=== PATIENT | female | born 1950 | race Caucasian/White ===

== ENCOUNTER 2016-06-25 16:06 | Emergency (ER) | payer MEDICARE, OTHER ==
[~2016-06-25] VITALS: Ht 167.6 cm; Wt 130.0 kg
[~2016-06-25 16:06] MED LIST: DIAZ5 PO; DYAZ37.52 PO; GLIM1 PO; LIPI40TA PO; LISI10TA PO; MECL25 PO; METF-324 PO; PROM25SU8 PO; ROSI1TAB24 PO
[2016-06-25 16:10] VITALS: PULSE 77; RESP 18; TEMP 98; O2SAT 96
[2016-06-25 16:25] VITALS: BP 144/52
[2016-06-25] MEDS ORDERED: NOVOLOGMXP SQ (16:28)
[2016-06-25] MEDS ORDERED: LISI2.5T3 PO (16:28)
[2016-06-25] MEDS ORDERED: METF1000 PO (16:28)
[2016-06-25] MEDS ORDERED: AMLO2.5T PO (16:28)
[2016-06-25] MEDS ORDERED: GABA300C5 PO (16:28)
[2016-06-25] MEDS ORDERED: SODIUM CHLOR 0.9% 1000 ML INJ 1,000 ML IV SCH (17:29)
[2016-06-25] MEDS ORDERED: ONDANSETRON HCL 4 MG/2 ML VIAL IVP ONE (17:30)
[2016-06-25] MEDS ORDERED: MORPHINE SULFATE 4 MG/ML INJ IV PUSH ONE (17:30)
--- NOTE | 2016-06-25 17:37 | PD ---
HPI Chief Complaint: Pain: Acute or Chronic Time Seen by Provider: 17:31 Travel History International Travel<30 days: No Contact w/Intl Traveler<30days: No Traveled to known affect area: No History of Present Illness HPI Patient is a 66-year-old diabetic female with chief complaint of right rib pain. She states 6 days ago she tripped and fell in the dark at her daughter's house and hit the right anterior ribs on a countertop. She has had pain since. She is use ibuprofen and Tylenol only briefly. Pain has not improved. She denies any central chest pain, shortness of breath, cough or fever. He feels like the right upper quadrant of her abdomen hurts somewhat to him it is distended and she feels bloated. She denies any allergies to her urine, dysuria , hematuria, change in bowel habits. She did not hit her head or lose consciousness. She denies any back pain. Additionally patient states that her right wrist has bothered her for 7 months after a fall she's had edema in the wrist since that time. She went to another ED and x-ray was done which she was never told the results and has not followed up. She requests this be x-rayed. Denies any acute worsening. PFSH Past Medical History Hx Anticoagulant Therapy: No Arthritis: Yes Cardiovascular Problems: Yes (HTN, CHOL) High Cholesterol: Yes Diabetes: Yes Patient Takes Glucophage: Yes Hypertension: Yes Respiratory: Yes (COPD) Tetanus Vaccination: < 5 Years Influenza Vaccination: No ?: Not Menopausal: Yes Past Surgical History Joint Replacement: No Social History Alcohol Use: No Tobacco Use: No Substance Use: No Allergies-Medications (Allergen,Severity, Reaction): Coded Allergies: Benadryl (Verified Allergy, Severe, PALPITATIONS, 06/25/16) Latex (Verified Allergy, Severe, PALPITATIONS,SKIN WEEPING,SUN BURNED, ) Reported Meds & Prescriptions Reported Meds & Active Scripts Active Lortab (Hydrocodone-Acetaminophen) 7.5-325 Mg Tab 1 Tab PO Q6H PRN Nystatin Topical (Nystatin) 100,000 unit/gm Cream 1 Applic TOPICAL BID 10 Days Diflucan (Fluconazole) 150 Mg Tab 150 Mg PO ONCE Reported Amlodipine (Amlodipine Besylate) 2.5 Mg Tab 2.5 Mg PO DAILY Gabapentin 300 Mg Cap 300 Mg PO BID Novolog Mix 70-30 Inj (Insulin Aspart Prota 70%/Aspart 30%) 1,000 Unit/10 Ml Vial 44 Units SQ BID Metformin (Metformin HCl) 1,000 Mg Tab 1,000 Mg PO BIDPC With meals Lisinopril 2.5 Mg Tab 2.5 Mg PO DAILY Review of Systems Except as stated in HPI: all other systems reviewed are Neg Physical Exam Narrative GENERAL: Well-developed and well-nourished adult female in no acute distress. SKIN: Bilateral intertrigo candidiasis of the breast. Warm and dry. Good turgor without tenting. HEAD: Normocephalic and atraumatic. EYES: PERRL bilaterally, 5mm. EOMI bilaterally. No injection or icterus present. No proptosis. Lids without edema or erythema. NECK: Supple, no midline tenderness, crepitus or step-offs. Trachea midline, no JVD. No cervical or facial lymphadenopathy. CARDIOVASCULAR: Regular rate and rhythm without murmurs, rubs, clicks or gallops. Radial and posterior tibial pulses 2+ bilaterally. Trace bilateral pedal edema, chronic per patient. Negative bilateral Homans sign. RESPIRATORY: Clear to auscultation bilaterally with symmetrical rise and fall, no distress or use of accessory muscles. Speaks in Full sentences. GASTROINTESTINAL: Tenderness in the right upper quadrant without rebounding or guarding. Does appear to be distended without discoloration. Resonant to percussion diffusely. No fluid wave. Normal bowel sounds all 4 quadrants. No masses or organomegaly present. MUSCULOSKELETAL: Mild ecchymosis and moderate tenderness to palpation of the right anterior lateral ribs in the midclavicular line to the mid axillary line without crepitus or step-offs. No pain with palpation of bilateral ASIS or pelvic instability. No lumbar sacral midline tenderness, crepitus or step- offs. Dorsum of the right wrist has some edema without ecchymosis or warmth. Has normal range of motion in the wrist does have some tenderness over the dorsum of the wrist, no scaphoid tenderness. Normal range of motion in all 5 fingers right hand. NEUROLOGIC: CN II-XII grossly intact. Awake and alert. Motor grossly within normal limits. Normal speech. PSYCHIATRIC: Appropriate mood and affect; insight and judgment normal. *Patient was examined in the presence of a nurse, Liss, at all times* Data Data Last Documented VS Vital Signs Date Time Temp Pulse Resp B/P Pulse Ox O2 Delivery O2 Flow Rate FiO2 06/25/16 19:17 70 18 151/69 95 Room Air 06/25/16 16:10 98.0 Orders Ribs, Uni (W/Exp Cxr-Min 3vw) (06/25/16 ) Complete Blood Count With Diff (06/25/16 17:29) Comprehensive Metabolic Panel (06/25/16 17:29) Prothrombin Time / Inr (Pt) (06/25/16 17:29) Act Partial Throm Time (Ptt) (06/25/16 17:29) Urinalysis - C+S If Indicated (06/25/16 17:29) Abdomen, Flat & Upright (06/25/16 ) Ct Abd/Pel W Iv Contrast(Rout) (06/25/16 17:29) Iv Access Insert/Monitor (06/25/16 17:29) Ecg Monitoring (06/25/16 17:29) Oximetry (06/25/16 17:29) NPO (06/25/16 17:29) Morphine Inj (Morphine Inj) (06/25/16 17:30) Ondansetron Inj (Zofran Inj) (06/25/16 17:30) Sodium Chlor 0.9% 1000 Ml Inj (Ns 1000 M (06/25/16 17:29) Wrist, Complete ([id number]) (06/25/16 ) Resp Incentive Spirometry (06/25/16 ) Iohexol 350 Inj (Omnipaque 350 Inj) (06/25/16 20:55) Labs Laboratory Tests Test 06/25/16 06/25/16 17:40 18:15 Urine Collection Type VOIDED Urine Color STRAW Urine Turbidity CLEAR Urine pH 7.0 Urine Specific [place] 1.020 Urine Protein NEG mg/dL Urine Glucose (UA) NEG mg/dL Urine Ketones NEG mg/dL Urine Occult Blood NEG Urine Nitrite NEG Urine Bilirubin NEG Urine Leukocyte Esterase NEG Urine WBC 6-8 /hpf Urine Squamous Epithelial >8 /hpf Cells Urine Bacteria FEW /hpf Microscopic Urinalysis Comment CULT NOT INDICATED White Blood Count 7.9 TH/MM3 Red Blood Count 4.28 MIL/MM3 Hemoglobin 12.3 GM/DL Hematocrit 36.9 % Mean Corpuscular Volume 86.2 FL Mean Corpuscular Hemoglobin 28.8 PG Mean Corpuscular Hemoglobin 33.4 % Concent Red Cell Distribution Width 13.1 % Platelet Count 250 TH/MM3 Mean Platelet Volume 8.1 FL Neutrophils (%) (Auto) 47.2 % Lymphocytes (%) (Auto) 41.4 % Monocytes (%) (Auto) 8.0 % Eosinophils (%) (Auto) 2.5 % Basophils (%) (Auto) 0.9 % Neutrophils # (Auto) 3.7 TH/MM3 Lymphocytes # (Auto) 3.3 TH/MM3 Monocytes # (Auto) 0.6 TH/MM3 Eosinophils # (Auto) 0.2 TH/MM3 Basophils # (Auto) 0.1 TH/MM3 CBC Comment DIFF FINAL Differential Comment Prothrombin Time 10.1 SEC Prothromb Time International 0.9 RATIO Ratio Activated Partial 24.7 SEC Thromboplast Time Sodium Level 143 MEQ/L Potassium Level 4.1 MEQ/L Chloride Level 109 MEQ/L Carbon Dioxide Level 27.7 MEQ/L Anion Gap 6 MEQ/L Blood Urea Nitrogen 18 MG/DL Creatinine 0.64 MG/DL Estimat Glomerular Filtration 93 ML/MIN Rate Random Glucose 79 MG/DL Calcium Level 8.7 MG/DL Total Bilirubin 0.5 MG/DL Aspartate Amino Transf 11 U/L (AST/SGOT) Alanine Aminotransferase 22 U/L (ALT/SGPT) Alkaline Phosphatase 76 U/L Total Protein 7.1 GM/DL Albumin 3.2 GM/DL MDM Medical Decision Making Medical Screen Exam Complete: Yes Emergency Medical Condition: Yes Interpretation(s) Laboratory Tests Test 06/25/16 06/25/16 17:40 18:15 Urine Collection Type VOIDED Urine Color STRAW (YELLW/STRAW) Urine Turbidity CLEAR (CLEAR) Urine pH 7.0 (5.0-8.5) Urine Specific [place] 1.020 (1.002-1.035) Urine Protein NEG mg/dL (NEG-TRACE) Urine Glucose (UA) NEG mg/dL (NEG) Urine Ketones NEG mg/dL (NEG) Urine Occult Blood NEG (NEG) Urine Nitrite NEG (NEG) Urine Bilirubin NEG (NEG) Urine Leukocyte Esterase NEG (NEG) Urine WBC 6-8 /hpf (0-5) Urine Squamous Epithelial >8 /hpf (0-5) Cells Urine Bacteria FEW /hpf (NONE) Microscopic Urinalysis Comment CULT NOT INDICATED White Blood Count 7.9 TH/MM3 (4.0-11.0) Red Blood Count 4.28 MIL/MM3 (4.00-5.30) Hemoglobin 12.3 GM/DL (11.6-15.3) Hematocrit 36.9 % (35.0-46.0) Mean Corpuscular Volume 86.2 FL (80.0-100.0) Mean Corpuscular Hemoglobin 28.8 PG (27.0-34.0) Mean Corpuscular Hemoglobin 33.4 % Concent (32.0-36.0) Red Cell Distribution Width 13.1 % (11.6-17.2) Platelet Count 250 TH/MM3 (150-450) Mean Platelet Volume 8.1 FL (7.0-11.0) Neutrophils (%) (Auto) 47.2 % (16.0-70.0) Lymphocytes (%) (Auto) 41.4 % (9.0-44.0) Monocytes (%) (Auto) 8.0 % (0.0-8.0) Eosinophils (%) (Auto) 2.5 % (0.0-4.0) Basophils (%) (Auto) 0.9 % (0.0-2.0) Neutrophils # (Auto) 3.7 TH/MM3 (1.8-7.7) Lymphocytes # (Auto) 3.3 TH/MM3 (1.0-4.8) Monocytes # (Auto) 0.6 TH/MM3 (0-0.9) Eosinophils # (Auto) 0.2 TH/MM3 (0-0.4) Basophils # (Auto) 0.1 TH/MM3 (0-0.2) CBC Comment DIFF FINAL Differential Comment Prothrombin Time 10.1 SEC (9.8-11.6) Prothromb Time International 0.9 RATIO Ratio Activated Partial 24.7 SEC Thromboplast Time (24.3-30.1) Sodium Level 143 MEQ/L (136-145) Potassium Level 4.1 MEQ/L (3.5-5.1) Chloride Level 109 MEQ/L (98-107) Carbon Dioxide Level 27.7 MEQ/L (21.0-32.0) Anion Gap 6 MEQ/L (5-15) Blood Urea Nitrogen 18 MG/DL (7-18) Creatinine 0.64 MG/DL (0.50-1.00) Estimat Glomerular Filtration 93 ML/MIN (>89) Rate Random Glucose 79 MG/DL (74-106) Calcium Level 8.7 MG/DL (8.5-10.1) Total Bilirubin 0.5 MG/DL (0.2-1.0) Aspartate Amino Transf 11 U/L (15-37) (AST/SGOT) Alanine Aminotransferase 22 U/L (10-53) (ALT/SGPT) Alkaline Phosphatase 76 U/L (45-117) Total Protein 7.1 GM/DL (6.4-8.2) Albumin 3.2 GM/DL (3.4-5.0) Last 24 hours Impressions Wrist X-Ray 06/25/16 0000 Signed Impressions: Service Date/Time: Saturday, June 25, 2016 18:07 - CONCLUSION: No acute abnormality is seen. Kane Blank MD Ribs X-Ray 06/25/16 0000 Signed Impressions: Service Date/Time: Saturday, June 25, 2016 17:50 - CONCLUSION: Negative left rib series. Kane Blank MD Abdomen X-Ray 06/25/16 0000 Signed Impressions: Service Date/Time: Saturday, June 25, 2016 17:59 - CONCLUSION: Suspected gallstones. Kane Blank MD Differential Diagnosis Rib contusion versus rib fracture versus pneumothorax versus intra-abdominal organ injury Narrative Course Patient is a 66-year-old female presenting with right lower rib and right upper quadrant abdominal pain for 5 days. She tripped and fell into a countertop. Oxygen saturation on room air is normal and patient has no increased work of breathing. No loss of breath sounds are signs of consolidation or effusion. She does have some report of right upper quadrant discomfort and distention of the abdomen. She is not tachycardic however diastolic blood pressure is 52. Patient was given morphine, Zofran and 1 L normal saline bolus and ordered CT abdomen and pelvis with contrast, right rib series x-ray and labs. Patient has chronic issue of the right wrist and asked me to add on x-ray for this as well. She does have some edema but no point tenderness, that this may represent a ganglion cyst. X-ray showed some degenerative changes distally which could represent an old fracture. Patient was recommended follow-up with hand specialist or orthopedist regarding this. X-ray of the pelvis showed gallstones. I discussed with the patient who states that she told she has gallstones but has always been asymptomatic. She denies any food intolerances, nausea and early satiety. Urinalysis shows 60 WBCs with few bacteria. Patient denied dysuria. CBC unremarkable. Metabolic panel shows chloride 109. AST 11 , ALT 122, ALP 76. ALP 3.2. Somehow the left ribs series was performed. There was no pneumothorax seen in the right ribs were fairly well imaged. I do not see any fracture. medication technician was able to include up to ribs 8 on the right which is adequate, CT shows a buckle-type rib fracture at rib #7. Fatty liver and cholelithiasis without signs of cholecystitis. As patient was reexamined and has no Bradley sign has no other symptoms of cholecystitis or other gallbladder disease no additional imaging is warranted at this time. I did discuss Dr. Roberts who agrees. Patient was given Percocet for pain control as well as incentive spirometer.See discharge paperwork for further instructions. The plan was discussed with the patient who acknowledged their understanding and agreement. Reinforced the follow-up with primary care is critically important. Patient instructed on emergent conditions that should prompt return to ED. Diagnosis Primary Impression: Rib fracture Qualified Code: S22.31XA - Closed fracture of one rib of right side, initial encounter Additional Impressions: Candidal intertrigo Cholelithiasis Qualified Code: K80.20 - Calculus of gallbladder without cholecystitis without obstruction Chronic wrist pain Qualified Code: M25.531 - Chronic wrist pain, right Patient Instructions: General Instructions, Rib Fracture (ED), Skin Yeast Infection (ED) Additional Instructions: Take medications as prescribed Your medications may cause drowsiness. Do not take with alcohol or sedatives. Do not operate a motor vehicle or heavy machinery while on medication. Apply warm, moist heat to painful ribs every 1 to 2 hours as needed Avoid maneuvers that aggravate pain Important to take 10 full, deep breaths in and out every 30 minutes until pain resolves to avoid complications including pneumonia Rib injuries may take 4-6 few weeks until completely resolved Follow-up with PCP in 2-3 days regarding the rib pain and chronic gallstones Recommend follow-up with orthopedist regarding the chronic wrist pain Return to the ED for any acute worsening of symptoms including worsening pain, fever, chills, cough, sputum production, shortness of breath Med/Other Pt SpecificInfo: Prescription(s) given Scripts Hydrocodone-Acetaminophen (Lortab)7.5-325 Mg Tab1 Tab PO Q6H PRN (PAIN) #20 TAB Ref 0 Prov:Hakan Salmeron MD 06/25/16 Nystatin Topical 100,000 unit/gm Cream1 Applic TOPICAL BID 10 Days Ref 0 Prov:Fiona Cooley MD 06/25/16 Fluconazole (Diflucan)150 Mg [id number] Mg PO ONCE #1 TAB Ref 0 Prov:Fiona Cooley MD 06/25/16 Disposition: 01 DISCHARGE HOME Condition: Stable Kane Massey III Jun 25, 2016 17:37
[2016-06-25] MEDS ORDERED: NYST15T TOPICAL (17:38)
[2016-06-25] MEDS ORDERED: DIFL150T PO (17:38)
[2016-06-25 17:54] LABS: BLOOD, URINE NEG (NEG); GLUCOSE,URINE NEG (NEG); KETONE, URINE NEG (NEG); NITRITE,URINE NEG (NEG)
[2016-06-25 18:28] LABS: METHOD OF COLLECTION VOIDED; SQUAMOUS EPITHELIAL CELL URINE >8 /hpf (0-5); URINE COLOR STRAW (YELLW/STRAW)
[2016-06-25 18:29] LABS: BACTERIA, URINE FEW /hpf; COMMENT (UR) CULT NOT INDICATED; CULTURE IF INDICATED CULT NOT INDICATED
[2016-06-25 18:30] VITALS: BP 159/63; PULSE 68; RESP 18; O2SAT 97
--- NOTE | 2016-06-25 18:30 | RADHPO ---
EXAM DATE/TIME: 06/25/2016 17:50 [facility] COMPARISON: No previous studies available for comparison. INDICATIONS : Left anterior, inferior rib pain after fall. MEDICAL HISTORY : Hypertension. Hypercholesterolemia. Chronic obstructive pulmonary disease. Diabetes, Arthritis SURGICAL HISTORY : Total knee replacement, right. ENCOUNTER: Initial ACUITY: 4 - 6 days PAIN SCORE: 9/10 LOCATION: Left chest FINDINGS: Multiple views of the left ribs were performed. There is no evidence of displaced fracture. No dest ructive lesions or areas of periosteal thickening are seen. Expiratory view of the chest is negative for pneumothorax. The mediastinal structures are midline. There is degenerative change of the musa ohumeral joints. Spurs are seen in the thoracic spine. CONCLUSION: Negative left rib series. Kane Blank MD on June 25, 2016 at 18:27 Board Certified Radiologist. This report was verified electronically.
[2016-06-25 18:36] LABS: AUTOMATED NEUTROPHIL # 3.7 TH/MM3 (1.8-7.7); BASOPHIL # 0.1 TH/MM3 (0-0.2); BASOPHIL % 0.9 % (0.0-2.0); EOSINOPHIL # 0.2 TH/MM3 (0-0.4); EOSINOPHIL % 2.5 % (0.0-4.0); HEMATOCRIT 36.9 % (35.0-46.0); HEMO FLAGS DIFF FINAL; LYMPH % 41.4 % (9.0-44.0); LYMPHOCYTE # 3.3 TH/MM3 (1.0-4.8); MEAN CELL VOLUME 86.2 FL (80.0-100.0); MEAN CORPUSCULAR HEMOGLOBIN 28.8 PG (27.0-34.0); MEAN CORPUSCULAR HGB CONC 33.4 % (32.0-36.0); NEUT % 47.2 % (16.0-70.0); PLATELET COUNT 250 TH/MM3 (150-450); RED BLOOD COUNT 4.28 MIL/MM3 (4.00-5.30); RED CELL DISTRIBUTION WIDTH 13.1 % (11.6-17.2); WHITE BLOOD COUNT 7.9 TH/MM3 (4.0-11.0)
--- NOTE | 2016-06-25 18:36 | RADHPO ---
EXAM DATE/TIME: 06/25/2016 17:59 [facility] COMPARISON: No previous studies available for comparison. INDICATIONS : Right upper quadrant abdominal pain after fall. MEDICAL HISTORY : Hypertension. Hypercholesterolemia. Chronic obstructive pulmonary disease. Diabetes, Arthritis SURGICAL HISTORY : Total knee replacement, right. ENCOUNTER: Initial ACUITY: 4 - 6 days PAIN SCORE: 10/10 LOCATION: Right upper quadrant abdomen FINDINGS: There are oval calcifications in the right upper quadrant likely related to gallstones given their size and location. Air is seen within nondistended segments of bowel. Spurs are seen in the lumbar spine. CONCLUSION: Suspected gallstones. Kane Blank MD on June 25, 2016 at 18:29 Board Certified Radiologist. This report was verified electronically.
--- NOTE | 2016-06-25 18:43 | RADHPO ---
EXAM DATE/TIME: 06/25/2016 18:07 [facility] COMPARISON: No previous studies available for comparison. INDICATIONS : Entire right wrist pain after fall. MEDICAL HISTORY : Hypertension. Hypercholesterolemia. Chronic obstructive pulmonary disease. Diabetes, Arthritis SURGICAL HISTORY : Total knee replacement, right. ENCOUNTER: Initial ACUITY: 4 - 6 days PAIN SCORE: 8/10 LOCATION: Right upper extremity FINDINGS: No fracture is seen. The wrist is normally aligned. There is some hypertrophic change at the distal radius and distal ulna. CONCLUSION: No acute abnormality is seen. Kane Blank MD on June 25, 2016 at 18:29 Board Certified Radiologist. This report was verified electronically.
[2016-06-25 18:54] LABS: CHLORIDE 109 MEQ/L (98-107); POTASSIUM 4.1 MEQ/L (3.5-5.1); SODIUM (NA) 143 MEQ/L (136-145)
[2016-06-25 19:00] LABS: ANION GAP 6 MEQ/L (5-15); APTT (PATIENT) 24.7 SEC (24.3-30.1); BICARBONATE 27.7 MEQ/L (21.0-32.0); BLOOD UREA NITROGEN 18 MG/DL (7-18); INTERNATIONAL NORMALIZED RATIO 0.9 RATIO; PROTHROMBIN TIME - PATIENT 10.1 SEC (9.8-11.6)
[2016-06-25 19:03] LABS: ALT (GPT) 22 U/L (10-53); AST (GOT) 11 U/L (15-37); GLOMERULAR FILTRATION RATE 93 ML/MIN (>89)
[2016-06-25 19:05] LABS: TOTAL BILIRUBIN ADULT 0.5 MG/DL (0.2-1.0)
[2016-06-25 19:06] LABS: ALKALINE PHOSPHATASE 76 U/L (45-117)
[2016-06-25 19:17] VITALS: BP 151/69; PULSE 70; RESP 18; O2SAT 95
--- NOTE | 2016-06-25 20:27 | RADHPO ---
EXAM DATE/TIME: 06/25/2016 19:28 [facility] COMPARISON: ABDOMEN FLAT & UPRIGHT, June 25, 2016, 17:59. INDICATIONS : Right lower rib pain following a fall five days ago. IV CONTRAST: 98 cc Omnipaque 350 (iohexol) IV ORAL CONTRAST: No oral contrast ingested. RADIATION DOSE: 22.4 CTDIvol (mGy) MEDICAL HISTORY : Hypertension. Diabetes. SURGICAL HISTORY : None. ENCOUNTER: Initial ACUITY: 4 - 6 days PAIN SCALE: 7/10 LOCATION: Right upper quadrant TECHNIQUE: Volumetric scanning of the abdomen and pelvis was performed. Using automated exposure control and adjustment of the mA and/or kV according to patient size, radiation dose was kept as low as reasonably achievable to obtain optimal diagnostic quality images. FINDINGS: There is diffuse decreased attenuation of the liver consistent with diffuse fatty infil tration. Two prominent gallstones are seen within the gallbladder. The spleen, pancreas, adrenal gla nds and kidneys appear unremarkable. Scattered atherosclerotic calcifications are seen at the arteria l system but no aneurysm is seen. The bowel is unremarkable. The pelvic structures appear grossly i ntact. There is minimal buckling of the anterior right seventh rib likely representing some minimal nondispl aced fracturing. The remaining bony structures appear grossly intact. There is degenerative change in the lumbar spine. There is some increased linear density seen at the bases likely representing so me atelectasis or scarring. CONCLUSION: 1. Suspected minimal cortical buckling consistent with minor fracturing at the right anterior seventh rib. 2. Fatty infiltration of the liver. 3. Gallstones. Kane Blank MD on June 25, 2016 at 19:57 Board Certified Radiologist. This report was verified electronically.
[2016-06-25] MEDS ORDERED: HYDR-3534 PO ×2 (20:35→21:03)
[2016-06-25] MEDS ORDERED: IOHEXOL 350 MG/ML 10 ML VIAL (for RAD DIAG) IV ONE (20:55)
[2016-06-25 21:35] VITALS: BP 165/74; PULSE 68; RESP 16; O2SAT 94
== END 2016-06-25 21:35 | disposition home or self-care (01) ==
LOC: PHEFT 16:06
DX: S22.31XA Fracture of one rib, right side, initial encounter for closed fracture (principal); K80.20 Calculus of gallbladder without cholecystitis without obstruction; M25.531 Pain in right wrist; I10 Essential (primary) hypertension; E78.00 Pure hypercholesterolemia, unspecified; E11.9 Type 2 diabetes mellitus without complications; J44.9 Chronic obstructive pulmonary disease, unspecified; W18.30XA Fall on same level, unspecified, initial encounter; Y99.8 Other external cause status
CPT/HCPCS: 71101; 73110; 74020; 74177; 80053; 81001; 85025; 85610; 85730; 94150; 96361; 96374; 96375; 99284; J2270; J2405; J7030; Q9967

== ENCOUNTER 2016-09-21 08:54 | Emergency (ER) | payer MEDICARE, OTHER ==
[~2016-09-21] VITALS: Ht 165.1 cm; Wt 120.0 kg
[~2016-09-21 08:54] MED LIST changes: +AMLO2.5T PO; -DIAZ5 PO; +DIFL150T PO; -DYAZ37.52 PO; +GABA300C5 PO; -GLIM1 PO; +HYDR-3534 PO; -LIPI40TA PO; -LISI10TA PO; +LISI2.5T3 PO; -MECL25 PO; -METF-324 PO; +METF1000 PO; +NOVOLOGMXP SQ; +NYST15T TOPICAL; -PROM25SU8 PO; -ROSI1TAB24 PO
[2016-09-21 08:56] VITALS: BP 154/75; PULSE 71; RESP 18; TEMP 97.2; O2SAT 96
[2016-09-21 09:15] LABS: BLOOD, URINE NEG (NEG); GLUCOSE,URINE NEG (NEG); KETONE, URINE TRACE mg/dL (NEG); NITRITE,URINE NEG (NEG)
[2016-09-21 09:19] LABS: METHOD OF COLLECTION CLEAN CATCH; URINE COLOR YELLOW (YELLW/STRAW)
[2016-09-21 09:20] LABS: BACTERIA, URINE OCC /hpf; SQUAMOUS EPITHELIAL CELL URINE > 8 /hpf (0-5)
[2016-09-21 09:21] LABS: COMMENT (UR) CULT NOT INDICATED; CULTURE IF INDICATED CULT NOT INDICATED
--- NOTE | 2016-09-21 09:34 | PD ---
HPI Chief Complaint: Abdominal Pain Time Seen by Provider: 09:21 Travel History International Travel<30 days: No Contact w/Intl Traveler<30days: No Traveled to known affect area: No History of Present Illness HPI This patient complains of pain in her right mid back. No specific injury. Duration 5 days. Severity is moderate. It waxes and wanes. No urinary complaints or fever. No vomiting. She has had some diarrhea without blood or mucus. PFSH Past Medical History Hx Anticoagulant Therapy: No Arthritis: Yes Cardiovascular Problems: Yes (HTN) High Cholesterol: Yes COPD: Yes Diabetes: Yes Patient Takes Glucophage: Yes Gastrointestinal Disorders: Yes (hx of gallstones) Hypertension: Yes Respiratory: Yes (COPD) Tetanus Vaccination: < 5 Years Influenza Vaccination: No ?: Not Menopausal: Yes Past Surgical History Joint Replacement: Yes (Rt. knee) Social History Alcohol Use: No Tobacco Use: No Substance Use: No Allergies-Medications (Allergen,Severity, Reaction): Coded Allergies: Benadryl (Verified Allergy, Severe, PALPITATIONS, 09/21/16) Latex (Verified Allergy, Severe, PALPITATIONS,SKIN WEEPING,SUN BURNED, 04/29) Reported Meds & Prescriptions Reported Meds & Active Scripts Active Lortab (Hydrocodone-Acetaminophen) 7.5-325 Mg Tab 1 Tab PO Q6H PRN Nystatin Topical (Nystatin) 100,000 unit/gm Cream 1 Applic TOPICAL BID 10 Days Diflucan (Fluconazole) 150 Mg Tab 150 Mg PO ONCE Reported Amlodipine (Amlodipine Besylate) 2.5 Mg Tab 2.5 Mg PO DAILY Gabapentin 300 Mg Cap 300 Mg PO BID Novolog Mix 70-30 Inj (Insulin Aspart Prota 70%/Aspart 30%) 1,000 Unit/10 Ml Vial 44 Units SQ BID Metformin (Metformin HCl) 1,000 Mg Tab 1,000 Mg PO BIDPC With meals Lisinopril 2.5 Mg Tab 2.5 Mg PO DAILY Review of Systems General / Constitutional: No: Fever Eyes: No: Visual changes HENT: No: Headaches Cardiovascular: No: Chest Pain or Discomfort Respiratory: No: Shortness of Breath Gastrointestinal: Positive: Diarrhea Genitourinary: No: Dysuria Musculoskeletal: Positive: Pain Skin: No Rash Neurologic: No: Weakness Psychiatric: No: Depression Endocrine: No: Polydipsia Hematologic/Lymphatic: No: Easy Bruising Physical Exam Narrative GENERAL: Well-nourished, well-developed patient in no apparent distress. SKIN: Focused skin assessment reveals no rash and nodules. Skin is Warm and dry. HEAD: Atraumatic. Normocephalic. EYES: Pupils equal and round. No scleral icterus. No injection or drainage. ENT: No nasal bleeding or discharge. Mucous membranes pink and moist. NECK: Trachea midline. No JVD. CARDIOVASCULAR: Regular rate and rhythm. No murmur appreciated. RESPIRATORY: No accessory muscle use. Clear to auscultation. Breath sounds equal bilaterally. GASTROINTESTINAL: Abdomen soft, non-tender, nondistended. Hepatic and splenic margins not palpable. MUSCULOSKELETAL: No obvious deformities. No clubbing. No cyanosis. No edema. NEUROLOGICAL: Awake and alert. No obvious cranial nerve deficits. Motor grossly within normal limits. Normal speech. PSYCHIATRIC: Appropriate mood and affect; insight and judgment normal. Data Data Last Documented VS Vital Signs Date Time Temp Pulse Resp B/P Pulse Ox O2 Delivery O2 Flow Rate FiO2 09/21/16 09:19 16 09/21/16 08:56 97.2 71 154/75 96 Orders Urinalysis - C+S If Indicated (09/21/16 09:04) Complete Blood Count With Diff (09/21/16 09:29) Comprehensive Metabolic Panel (09/21/16 09:29) Lipase (09/21/16 09:29) Labs Laboratory Tests Test 09/21/16 09/21/16 09:06 09:25 Urine Collection Type CLEAN CATCH Urine Color YELLOW Urine Turbidity CLEAR Urine pH 6.0 Urine Specific [place] 1.020 Urine Protein NEG mg/dL Urine Glucose (UA) NEG mg/dL Urine Ketones TRACE mg/dL Urine Occult Blood NEG Urine Nitrite NEG Urine Bilirubin NEG Urine Leukocyte Esterase TRACE Urine WBC 3-5 /hpf Urine Squamous Epithelial > 8 /hpf Cells Urine Bacteria OCC /hpf Microscopic Urinalysis Comment CULT NOT INDICATED Urine Collection Time 09:06 White Blood Count 7.5 TH/MM3 Red Blood Count 4.26 MIL/MM3 Hemoglobin 12.1 GM/DL Hematocrit 37.0 % Mean Corpuscular Volume 86.9 FL Mean Corpuscular Hemoglobin 28.4 PG Mean Corpuscular Hemoglobin 32.7 % Concent Red Cell Distribution Width 13.3 % Platelet Count 267 TH/MM3 Mean Platelet Volume 8.0 FL Neutrophils (%) (Auto) 53.6 % Lymphocytes (%) (Auto) 35.6 % Monocytes (%) (Auto) 6.6 % Eosinophils (%) (Auto) 3.3 % Basophils (%) (Auto) 0.9 % Neutrophils # (Auto) 4.0 TH/MM3 Lymphocytes # (Auto) 2.7 TH/MM3 Monocytes # (Auto) 0.5 TH/MM3 Eosinophils # (Auto) 0.2 TH/MM3 Basophils # (Auto) 0.1 TH/MM3 CBC Comment DIFF FINAL Differential Comment Sodium Level 143 MEQ/L Potassium Level 4.1 MEQ/L Chloride Level 108 MEQ/L Carbon Dioxide Level 27.6 MEQ/L Anion Gap 7 MEQ/L Blood Urea Nitrogen 15 MG/DL Creatinine 0.68 MG/DL Estimat Glomerular Filtration 87 ML/MIN Rate Random Glucose 145 MG/DL Calcium Level 8.9 MG/DL Total Bilirubin 0.4 MG/DL Aspartate Amino Transf 12 U/L (AST/SGOT) Alanine Aminotransferase 21 U/L (ALT/SGPT) Alkaline Phosphatase 76 U/L Total Protein 7.3 GM/DL Albumin 3.3 GM/DL Lipase 201 U/L [facility] Medical Decision Making Medical Screen Exam Complete: Yes Emergency Medical Condition: Yes Medical Record Reviewed: Yes Differential Diagnosis Lumbar strain, sciatica, pyelonephritis, biliary colic Narrative Course I have reviewed the patient's electronic medical record. Patient was here June 2016 for rib injury. She had up getting a CT scan which revealed cholelithiasis without signs of cholecystitis. Knowing she has gallstones she is worried that this could be a gallbladder problem. IV placed CBC is normal Metabolic profile is normal LFTs are normal Lipase is normal Urinalysis is normal Patient is clinically stable for outpatient follow-up. I think she most likely has musculoskeletal pain. I don't think she is having biliary colic Diagnosis Primary Impression: Back pain Qualified Code: M54.9 - Acute right-sided back pain, unspecified back location Additional Impression: Cholelithiasis Qualified Code: K80.20 - Calculus of gallbladder without cholecystitis without obstruction Additional Instructions: The patient was advised to follow up with their physician and return if they worsen. Med/Other Pt SpecificInfo: Other Disposition: 01 DISCHARGE HOME Condition: Stable Abilio Henriquez MD Sep 21, 2016 09:34
[2016-09-21 10:03] LABS: BASOPHIL # 0.1 TH/MM3 (0-0.2); BASOPHIL % 0.9 % (0.0-2.0); EOSINOPHIL # 0.2 TH/MM3 (0-0.4); EOSINOPHIL % 3.3 % (0.0-4.0); HEMO FLAGS DIFF FINAL; LYMPH % 35.6 % (9.0-44.0); LYMPHOCYTE # 2.7 TH/MM3 (1.0-4.8); MEAN CELL VOLUME 86.9 FL (80.0-100.0); MEAN CORPUSCULAR HEMOGLOBIN 28.4 PG (27.0-34.0); MEAN CORPUSCULAR HGB CONC 32.7 % (32.0-36.0); MONO % 6.6 % (0.0-8.0); NEUT % 53.6 % (16.0-70.0); PLATELET COUNT 267 TH/MM3 (150-450); RED BLOOD COUNT 4.26 MIL/MM3 (4.00-5.30); RED CELL DISTRIBUTION WIDTH 13.3 % (11.6-17.2); WHITE BLOOD COUNT 7.5 TH/MM3 (4.0-11.0)
[2016-09-21 10:04] LABS: CHLORIDE 108 MEQ/L (98-107); POTASSIUM 4.1 MEQ/L (3.5-5.1); SODIUM (NA) 143 MEQ/L (136-145)
[2016-09-21 10:08] LABS: ANION GAP 7 MEQ/L (5-15); BICARBONATE 27.6 MEQ/L (21.0-32.0); BLOOD UREA NITROGEN 15 MG/DL (7-18)
[2016-09-21 10:11] LABS: ALT (GPT) 21 U/L (10-53); AST (GOT) 12 U/L (15-37); GLOMERULAR FILTRATION RATE 87 ML/MIN (>89)
[2016-09-21 10:13] LABS: TOTAL BILIRUBIN ADULT 0.4 MG/DL (0.2-1.0)
[2016-09-21 10:14] LABS: ALKALINE PHOSPHATASE 76 U/L (45-117)
[2016-09-21 11:18] VITALS: BP 118/86
== END 2016-09-21 11:22 | disposition home or self-care (01) ==
LOC: PHED 08:54
DX: M54.9 Dorsalgia, unspecified (principal); K80.20 Calculus of gallbladder without cholecystitis without obstruction; I10 Essential (primary) hypertension; E78.00 Pure hypercholesterolemia, unspecified; E11.9 Type 2 diabetes mellitus without complications; Z79.84 Long term (current) use of oral hypoglycemic drugs; Z87.39 Personal history of other diseases of the musculoskeletal system and connective tissue; Z86.79 Personal history of other diseases of the circulatory system; Z87.09 Personal history of other diseases of the respiratory system; Z87.19 Personal history of other diseases of the digestive system
CPT/HCPCS: 80053; 81001; 83690; 85025; 99284

== ENCOUNTER 2017-03-30 15:40 | Emergency (ER) | payer MEDICARE, OTHER ==
[~2017-03-30] VITALS: Ht 172.7 cm; Wt 126.0 kg
[~2017-03-30 15:40] MED LIST changes: -DIFL150T PO; -HYDR-3534 PO; -NYST15T TOPICAL
[2017-03-30 15:53] VITALS: BP 161/71; PULSE 81; RESP 16; TEMP 98.9; O2SAT 97
[2017-03-30] MEDS ORDERED: FOLI400T PO (17:57)
[2017-03-30] MEDS ORDERED: GLIM2TAB PO (17:57)
[2017-03-30] MEDS ORDERED: EMPA1TAB PO (17:57)
[2017-03-30] MEDS ORDERED: RESP: ALBUTEROL 2.5 MG/IPRATROPIUM 0.5 MG NEB (SCH) INH ONE (18:00)
--- NOTE | 2017-03-30 18:02 | PD ---
HPI Chief Complaint: Edema Time Seen by Provider: 17:39 Travel History International Travel<30 days: No Contact w/Intl Traveler<30days: No Traveled to known affect area: No History of Present Illness HPI 66-year-old female complains of ankle swelling and shortness of breath. Patient states that the symptoms started about month ago. Patient states that she has history of COPD in the past. Patient's not on any inhaler. Patient is a nonsmoker. Patient denies any coughing congestion fever chills. Patient noticed increasing swelling of the ankles recently. Patient denies any injury. Patient denies any ankle pain. Patient denies any history of DVT or PE. Patient states that she has mild burning sensation substernally intermittently. Patient denies abdominal pain. Patient denies any nausea vomiting diarrhea. Patient has history hypertension, diabetes, hyperlipidemia. Patient denies family history of heart disease. Patient denies any history of recent long distance travel. PFSH Past Medical History Hx Anticoagulant Therapy: No Arthritis: Yes Cardiovascular Problems: Yes (htn on meds) High Cholesterol: Yes COPD: Yes Diabetes: Yes (type 2) Patient Takes Glucophage: Yes Endocrine: Yes Gastrointestinal Disorders: Yes (hx of gallstones) Hypertension: Yes Musculoskeletal: Yes Respiratory: Yes (copd) Influenza Vaccination: No ?: Not Menopausal: Yes Past Surgical History Joint Replacement: Yes (Rt. knee) Social History Alcohol Use: No Tobacco Use: No Substance Use: No Allergies-Medications (Allergen,Severity, Reaction): Coded Allergies: diphenhydramine (Unverified Allergy, Severe, PALPITATIONS, 03/30/17) latex (Unverified Allergy, Severe, PALPITATIONS,SKIN WEEPING,SUN BURNED, 03/30/17) Reported Meds & Prescriptions Reported Meds & Active Scripts Active Reported Folic Acid 0.4 Mg Tab 400 Mcg PO DAILY Glimepiride 2 Mg Tab 2 Mg PO BIDAC Jardiance (Empagliflozin) 10 Mg Tab 10 Mg PO DAILY Amlodipine (Amlodipine Besylate) 2.5 Mg Tab 2.5 Mg PO DAILY Gabapentin 300 Mg Cap 300 Mg PO BID Novolog Mix 70-30 Inj (Insulin Aspart Prota 70%/Aspart 30%) 1,000 Unit/10 Ml Vial 44 Units SQ BID Metformin (Metformin HCl) 1,000 Mg Tab 1,000 Mg PO BIDPC With meals Lisinopril 2.5 Mg Tab 2.5 Mg PO DAILY Review of Systems General / Constitutional: No: Fever Eyes: No: Visual changes HENT: No: Headaches Cardiovascular: No: Chest Pain or Discomfort Respiratory: Positive: Shortness of Breath Gastrointestinal: No: Abdominal Pain Genitourinary: No: Dysuria Musculoskeletal: Positive: Edema, No: Pain Skin: No Rash Neurologic: No: Weakness Psychiatric: No: Depression Endocrine: No: Polydipsia Hematologic/Lymphatic: No: Easy Bruising Physical Exam Narrative GENERAL: Well-nourished, well-developed patient. SKIN: Focused skin assessment warm/dry. HEAD: Normocephalic. EYES: No scleral icterus. No injection or drainage. NECK: Supple, trachea midline. No JVD or lymphadenopathy. CARDIOVASCULAR: Regular rate and rhythm without murmurs, gallops, or rubs. RESPIRATORY: Breath sounds equal bilaterally. No accessory muscle use. Mild expiratory wheezes bilaterally. No rhonchi. GASTROINTESTINAL: Abdomen soft, non-tender, nondistended. MUSCULOSKELETAL: +1 pitting edema lower extremity. Negative Homans sign. No redness no heat noted lower extremity. BACK: Nontender without obvious deformity. No CVA tenderness. Neurologic exam normal. Data Data Last Documented VS Vital Signs Date Time Temp Pulse Resp B/P (MAP) Pulse Ox O2 Delivery O2 Flow Rate FiO2 03/30/17 20:35 68 18 141/68 (92) 95 Room Air 03/30/17 15:53 98.9 Orders Orders Electrocardiogram (03/30/17 17:54) Complete Blood Count With Diff (03/30/17 17:54) Comprehensive Metabolic Panel (03/30/17 17:54) Creatine Kinase (Cpk) (03/30/17 17:54) Troponin I (03/30/17 17:54) B-Type Natriuretic Peptide (03/30/17 17:54) Prothrombin Time / Inr (Pt) (03/30/17 17:54) Act Partial Throm Time (Ptt) (03/30/17 17:54) Urinalysis - C+S If Indicated (03/30/17 17:54) D-Dimer (03/30/17 17:54) Thyroid Stimulating Hormone (03/30/17 17:54) Chest, Single Ap (03/30/17 17:54) Iv Access Insert/Monitor (03/30/17 17:54) Ecg Monitoring (03/30/17 17:54) Oximetry (03/30/17 17:54) Us Leg Venous Doppler Bilat (03/30/17 17:54) Albuterol-Ipratropium Neb (Duoneb Neb) (03/30/17 18:00) Ct Pulmonary Angiogram (03/30/17 20:19) Iohexol 350 Inj (Omnipaque 350 Inj) (03/30/17 21:50) Ed Discharge Order (03/30/17 22:26) Labs Laboratory Tests Test 03/30/17 18:00 03/30/17 18:08 Urine Color STRAW Urine Turbidity CLEAR Urine pH 6.0 Urine Specific [place] 1.030 Urine Protein NEG mg/dL Urine Glucose (UA) 1000 OR GREATER mg/dL Urine Ketones NEG mg/dL Urine Occult Blood NEG Urine Nitrite NEG Urine Bilirubin NEG Urine Leukocyte Esterase NEG Urine RBC 0-3 /hpf Urine WBC 0-2 /hpf Urine Squamous Epithelial Cells 0-5 /hpf Microscopic Urinalysis Comment CULT NOT INDICATED White Blood Count 6.6 TH/MM3 Red Blood Count 4.63 MIL/MM3 Hemoglobin 13.4 GM/DL Hematocrit 40.3 % Mean Corpuscular Volume 87.1 FL Mean Corpuscular Hemoglobin 29.0 PG Mean Corpuscular Hemoglobin Concent 33.3 % Red Cell Distribution Width 13.0 % Platelet Count 216 TH/MM3 Mean Platelet Volume 8.2 FL Neutrophils (%) (Auto) 52.3 % Lymphocytes (%) (Auto) 36.8 % Monocytes (%) (Auto) 7.6 % Eosinophils (%) (Auto) 2.4 % Basophils (%) (Auto) 0.9 % Neutrophils # (Auto) 3.4 TH/MM3 Lymphocytes # (Auto) 2.4 TH/MM3 Monocytes # (Auto) 0.5 TH/MM3 Eosinophils # (Auto) 0.2 TH/MM3 Basophils # (Auto) 0.1 TH/MM3 CBC Comment DIFF FINAL Differential Comment Prothrombin Time 10.1 SEC Prothromb Time International Ratio 0.9 RATIO Activated Partial Thromboplast Time 25.3 SEC D-Dimer Quantitative (PE/DVT) 0.55 MG/L FEU Blood Urea Nitrogen 12 MG/DL Creatinine 0.68 MG/DL Random Glucose 175 MG/DL Total Protein 6.7 GM/DL Albumin 3.1 GM/DL Calcium Level 8.3 MG/DL Aspartate Amino Transf (AST/SGOT) 15 U/L Alanine Aminotransferase (ALT/SGPT) 28 U/L Total Bilirubin 0.4 MG/DL Sodium Level 141 MEQ/L Potassium Level 4.0 MEQ/L Chloride Level 106 MEQ/L Carbon Dioxide Level 28.6 MEQ/L Anion Gap 6 MEQ/L Estimat Glomerular Filtration Rate 87 ML/MIN Total Creatine Kinase 50 U/L Troponin I LESS THAN 0.02 NG/ML B-Type Natriuretic Peptide 30 PG/ML Thyroid Stimulating Hormone 3rd Gen 0.959 uIU/ML MDM Medical Decision Making Medical Screen Exam Complete: Yes Emergency Medical Condition: Yes Interpretation(s) Last Impressions Lower Extremity Ultrasound 03/30/171753 Signed Impressions: Service Date/Time: March 00:03 - CONCLUSION: Normal examination. No evidence of DVT Ryan Munguia MD Chest X-Ray 03/30/171753 Signed Impressions: Service Date/Time: Thursday, March 30, 2017 18:08 - CONCLUSION: No acute disease. Ryan Munguia MD 2016 p.m. CBC within normal limit. CMP within normal limit. BNP 30. Cardiac enzymes are normal. UA is negative. D-dimer 0.55. Differential Diagnosis Differential diagnosis including acute exacerbation COPD, bronchitis, pneumonia , PE, pneumothorax, dependent edema, DVT. Narrative Course 66-year-old female complains of lower extremity swelling and shortness of breath. History of COPD. Diagnosis Primary Impression: Dependent edema Additional Impression: Reactive airway disease Qualified Codes: J45.40 - Moderate persistent asthma, uncomplicated Patient Instructions: General Instructions Additional Instructions: Albuterol inhaler as needed. Follow-up with local physician. Return if worse. Keep legs elevated. Decreased by mouth fluid intake. Med/Other Pt SpecificInfo: Prescription(s) given Scripts Albuterol 18 GM Inh (Ventolin Hfa 18 GM Inh) 90 Mcg/Act Aer 2 PUFF INH Q4-6H Y for SHORTNESS OF BREATH, #1 INHALER 0 Refills Prov: David Wong MD 03/30/17 Disposition: 01 DISCHARGE HOME Condition: Stable David Wong MD Mar 30, 2017 18:02
[2017-03-30 18:08] VITALS: O2SAT 95
[2017-03-30 18:17] LABS: AUTOMATED NEUTROPHIL # 3.4 TH/MM3 (1.8-7.7); BASOPHIL # 0.1 TH/MM3 (0-0.2); BASOPHIL % 0.9 % (0.0-2.0); EOSINOPHIL # 0.2 TH/MM3 (0-0.4); EOSINOPHIL % 2.4 % (0.0-4.0); HEMATOCRIT 40.3 % (35.0-46.0); HEMO FLAGS DIFF FINAL; LYMPH % 36.8 % (9.0-44.0); LYMPHOCYTE # 2.4 TH/MM3 (1.0-4.8); MEAN CELL VOLUME 87.1 FL (80.0-100.0); MEAN CORPUSCULAR HGB CONC 33.3 % (32.0-36.0); MONO % 7.6 % (0.0-8.0); NEUT % 52.3 % (16.0-70.0); PLATELET COUNT 216 TH/MM3 (150-450); RED BLOOD COUNT 4.63 MIL/MM3 (4.00-5.30); WHITE BLOOD COUNT 6.6 TH/MM3 (4.0-11.0)
[2017-03-30 18:18] LABS: BLOOD, URINE NEG (NEG); GLUCOSE,URINE 1000 OR GREATER mg/dL (NEG); KETONE, URINE NEG (NEG); NITRITE,URINE NEG (NEG)
--- NOTE | 2017-03-30 18:21 | RADRPT ---
EXAM DATE/TIME: 03/30/2017 18:08 [facility] COMPARISON: No previous studies available for comparison. INDICATIONS : Shortness of breath. MEDICAL HISTORY : Hypertension. Diabetes. SURGICAL HISTORY : None. ENCOUNTER: Initial ACUITY: 1 day PAIN SCORE: 0/10 LOCATION: Bilateral chest FINDINGS: A single view of the chest demonstrates the lungs to be symmetrically aerated without evidence of mas s, infiltrate or effusion. The cardiomediastinal contours are unremarkable. Osseous structures are intact with hypertrophic spurring right side thoracic spine mid thoracic spine. CONCLUSION: No acute disease. Ryan Munguia MD on March 30, 2017 at 18:18 Board Certified Radiologist. This report was verified electronically.
[2017-03-30 18:22] LABS: URINE COLOR STRAW (YELLW/STRAW)
[2017-03-30 18:23] LABS: COMMENT (UR) CULT NOT INDICATED; CULTURE IF INDICATED CULT NOT INDICATED; RBC, URINE 0-3 /hpf (0-3); SQUAMOUS EPITHELIAL CELL URINE 0-5 /hpf (0-5); WBC, URINE 0-2 /hpf (0-5)
[2017-03-30 18:28] LABS: CHLORIDE 106 MEQ/L (98-107); SODIUM (NA) 141 MEQ/L (136-145)
[2017-03-30 18:31] LABS: ANION GAP 6 MEQ/L (5-15); BICARBONATE 28.6 MEQ/L (21.0-32.0); BLOOD UREA NITROGEN 12 MG/DL (7-18)
[2017-03-30 18:34] LABS: ALT (GPT) 28 U/L (10-53)
[2017-03-30 18:35] LABS: AST (GOT) 15 U/L (15-37); GLOMERULAR FILTRATION RATE 87 ML/MIN (>89)
[2017-03-30 18:36] LABS: TOTAL BILIRUBIN ADULT 0.4 MG/DL (0.2-1.0)
[2017-03-30 18:37] LABS: ALKALINE PHOSPHATASE 74 U/L (45-117)
[2017-03-30 18:42] LABS: APTT (PATIENT) 25.3 SEC (24.3-30.1); INTERNATIONAL NORMALIZED RATIO 0.9 RATIO; PROTHROMBIN TIME - PATIENT 10.1 SEC (9.8-11.6)
[2017-03-30 18:45] LABS: CREATINE KINASE 50 U/L (26-192)
--- NOTE | 2017-03-30 19:50 | RADRPT ---
EXAM DATE/TIME: 03/31/2017 00:03 [facility] COMPARISON: No previous studies available for comparison. INDICATIONS : Ankle swelling and shortness of breath. MEDICAL HISTORY : COPD. HTN. Hypercholesterol. Diabetic. SURGICAL HISTORY : Right knee surgery. ENCOUNTER: Initial ACUITY: 1 month PAIN SCORE: 3/10 LOCATION: Bilateral leg. TECHNIQUE: Venous ultrasound of the left and right leg was performed from the inguinal ligament to the proximal calf. Real-time, color Doppler and spectral tracing, compression and augmentation techniques were us ed. FINDINGS: RIGHT LEG: There is normal compressibility of the deep venous system from the inguinal region to the proximal ca lf. No echogenic clot is seen in the lumen of the common femoral, femoral, popliteal, and posterior tibial veins. There is a normal response of the venous system to proximal and distal augmentation an d respiration. Iliac vein open and patent LEFT LEG: There is normal compressibility of the deep venous system from the inguinal region to the proximal ca lf. No echogenic clot is seen in the lumen of the common femoral, femoral, popliteal, and posterior tibial veins. There is a normal response of the venous system to proximal and distal augmentation an d respiration. Iliac vein open and patent CONCLUSION: Normal examination. No evidence of DVT Ryan Munguia MD on March 30, 2017 at 19:47 Board Certified Radiologist. This report was verified electronically.
[2017-03-30 20:35] VITALS: BP 141/68; PULSE 68; RESP 18; O2SAT 95
[2017-03-30] MEDS ORDERED: IOHEXOL 350 MG/ML 10 ML VIAL (for RAD DIAG) IVCONTRAST ONE (21:50)
--- NOTE | 2017-03-30 22:17 | RADRPT ---
EXAM DATE/TIME: 03/30/2017 21:44 [facility] COMPARISON: CHEST SINGLE AP, March 30, 2017, 18:08. INDICATIONS : Shortness of breath, elevated d-dimer. IV CONTRAST: 70 cc Omnipaque 350 (iohexol) IV RADIATION DOSE: 21.70 CTDIvol (mGy) MEDICAL HISTORY : Hypertension. Chronic obstructive pulmonary disease. Diabetes mellitus type 2. SURGICAL HISTORY : None. ENCOUNTER: Initial ACUITY: 1 day PAIN SCALE: 0/10 LOCATION: chest TECHNIQUE: Volumetric scanning of the chest was performed using a pulmonary embolism protocol MIP images were re constructed. Using automated exposure control and adjustment of the mA and/or kV according to patien t size, radiation dose was kept as low as reasonably achievable to obtain optimal diagnostic quality images. DICOM format image data is available electronically for review and comparison. Follow-up recommendations for detected pulmonary nodules are based at a minimum on nodule size and pa tient risk factors according to Fleischner Society Guidelines. FINDINGS: PULMONARY ARTERIES: No filling defects are seen in the pulmonary arteries through the segmental level. LUNGS: There is no consolidation or pneumothorax . No concerning pulmonary nodule is visualized. PLEURAE: There is no pleural thickening or pleural effusion. MEDIASTINUM: There is good visualization of the great vessels of the middle mediastinum. No evidence of mediastin al or hilar adenopathy/mass. Coronary artery calcifications left identified MUSCULOSKELETAL: Within normal limits for patient age. MISCELLANEOUS: The visualized upper abdominal organs demonstrate no acute abnormality. Gallstones at the fundus of t he gallbladder CONCLUSION: No evidence of pulmonary emboli. No evidence of acute cardiopulmonary process. Coronary artery calcifications are appreciated and gallstones noted Ryan Munguia MD on March 30, 2017 at 22:12 Board Certified Radiologist. This report was verified electronically.
[2017-03-30] MEDS ORDERED: VENTAER INH (22:28)
[2017-03-30 22:43] VITALS: BP 159/80
--- NOTE | 2017-03-31 13:20 | EKG ---
Date Performed: 03/30/2017 Time Performed: 18:18:32 PTAGE: 66 years EKG: Sinus rhythm WITH FIRST DEGREE AV BLOCK LOW QRS VOLTAGE IN PRECORDIAL LEADS NONSPECIFIC T-WAVE ABNORMALITY ABNORM AL ECG PREVIOUS TRACING : 06/20/2009 07.14 QRS voltage has increased in the precordial leads compared to the old tracing. DOCTOR: Lio Harmon Interpretating Date/Time 03/31/2017 13:18:44
== END 2017-03-30 22:44 | disposition home or self-care (01) ==
LOC: PHED 15:40
DX: R60.0 Localized edema (principal); J45.40 Moderate persistent asthma, uncomplicated; J44.9 Chronic obstructive pulmonary disease, unspecified; E11.9 Type 2 diabetes mellitus without complications; I10 Essential (primary) hypertension; Z79.4 Long term (current) use of insulin; Z79.899 Other long term (current) drug therapy
CPT/HCPCS: 71010; 71275; 80053; 81001; 82550; 83880; 84443; 84484; 85025; 85379; 85610; 85730; 93005; 93970; 94664; 99285; Q9967